=== PATIENT | male | born 1955 | race Caucasian/White ===

== ENCOUNTER → 2022-03-23 10:27 | Outpatient (CLI) | payer MEDICARE, SELFPAY ==
--- NOTE | ~2022-03-23 | MR_ITS ---
EXAMINATION: MR lumbar spine wo con DATE: 03/23/2022 12:14 INDICATION: Lumbar radiculopathy radiating down the right leg. TECHNIQUE: Magnetic resonance imaging (MRI) of the lumbar spine was performed without intravenous con trast. Sequences included sagittal T2-weighted FSE, sagittal T2-weighted FS FSE, sagittal T1-weighted FSE, and axial T2-weighted FSE. COMPARISON: None FINDINGS: Bilateral hypoplastic riblets at what for purposes of this report will be designated L1 with 4 more c audal nonrib-bearing lumbar segments L2-L5. 5 mm retrolisthesis L1 on L2, 2-3 mm retrolisthesis L2 on L3, 3 mm retrolisthesis L3 on L4, 2 mm retrolisthesis L4 on L5 and 3 mm retrolisthesis L5 on S1. Mil d anterior wedging at T12 and L1. Lumbar vertebral body heights are otherwise normal. There are a few scattered small Schmorl's nodes along the endplates of several vertebral bodies in the lumbar and lo wer thoracic spine. Severe right-sided predominant disc height loss at L1-L2 and L4-L5, severe left-s ided predominant disc height loss at L3-L4 and L5-S1, all with associated fibrofatty or fibrovascular degenerative endplate changes. Marrow signal is otherwise normal. Mild disc height loss at T11-T12 a nd T12-L1 and L2-L3. The conus medullaris terminates at L1-L2. There is normal signal in the caudal s rudy cord. Left kidney is not visualized and is either atrophic, absent or abnormally located. Parav ertebral soft tissues are otherwise unremarkable. The following disc levels are specifically discusse d: T11-T12: Disc is minimally bulging. There is mild bilateral facet osteoarthritis. There is mild left neural foraminal stenosis. There is no central canal stenosis. T12-L1: Disc is minimally bulging. There is mild left and moderate right facet joint osteoarthritis. There is no neural foraminal stenosis. There is no central canal stenosis. L1-L2: Disc is bulging with annular fissure. There is moderate right and mild to moderate left facet joint osteoarthritis. There is moderate bilateral, left greater than right neural foraminal stenosis. There is mild to moderate central canal stenosis. L2-L3: Disc is bulging with annular fissure. There is hypertrophy of the ligamentum flavum. There is moderate left and severe right facet joint osteoarthritis. There is moderate bilateral neural foramin al stenosis. There is moderate to severe central canal stenosis with minimal CSF signal amongst the c entrally clustered nerve roots. L3-L4: Disc is bulging with annular fissure. There is moderate bilateral facet joint osteoarthritis. There is moderate bilateral neural foraminal stenosis. There is moderate to severe central canal sten osis with minimal CSF signal amongst the centrally clustered nerve roots. L4-L5: Disc is bulging. There is left and severe right facet joint osteoarthritis. There is moderate left and moderate right neural foraminal stenosis. There is mild central canal stenosis. L5-S1: Disc is bulging with annular fissure. There is moderate to severe bilateral facet joint osteoa rthritis. There is mild right and moderate to severe left neural foraminal stenosis. There is minimal central canal stenosis. IMPRESSION: 1. Severe lumbar spondylosis. 2. Left kidney not visualized at the left renal fossa which could be due to either severe atrophy, de velopmental or surgical absence or abnormal positioning. Reviewed, dictated and finalized at location A. TRONIC TESTER IMPRESSION: 1. Severe lumbar spondylosis. 2. Left kidney not visualized at the left renal fossa which could be due to eit her severe atrophy, developmental or surgical absence or abnormal positioning.
--- NOTE | ~2022-03-23 | MR_ITS ---
EXAMINATION: MR hip RT wo con DATE: 03/23/2022 11:54 INDICATION: Right hip pain and lumbar radiculopathy TECHNIQUE: Magnetic resonance imaging (MRI) of the right hip was performed without intravenous contr ast. Sequences included full-field axial PD-weighted FS FSE and T1-weighted FSE, coronal of the pelvi s with PD-weighted FS FSE, T2-weighted FSE and T1-weighted FSE, small field of view of the right hip with axial PD-weighted FS FSE, sagittal PD-weighted FS FSE, coronal PD-weighted FS FSE and coronal T2 weighted FSE. Additional radial T1-weighted FGR oriented orthogonal to the acetabular rim were obt ained for evaluation of the labrum. COMPARISON: None FINDINGS: Bones/labrum/cartilage: There is subarticular edema and decreased T1 signal underlying the apex and anterosuperior aspect of the right femoral head which is flattened with collapse of the articular surface. This could be relat ed to either trauma including insufficiency fracture or sequela of advanced osteonecrosis. There is s econdary severe osteoarthritis at the right hip with full and near full-thickness cartilage loss ledy g significant portions of the right femoral head and acetabulum. There is prominent subarticular cyst ic change at the anterosuperior right acetabulum. There is diffuse degenerative tearing of the right acetabular labrum which has a thickened macerated appearance. Mild osteoarthritis suggest at the left hip which is not diagnostically evaluated on the large [id number] axial and coronal images of the pelvis. There appear to be small para labral cysts along the superolateral and anterosuperior left a cetabular labrum suggesting a tear of the contralateral left acetabular labrum. Moderate to severe sp ondylosis in the mid to lower lumbar spine. Fluid: Physiologic amount of fluid in the left hip joint. There is an asymmetric right hip joint effusion, l ikely small but with prominent associated synovitis. Soft tissues: Normal and symmetric muscle bulk and signal in the pelvis and visualized proximal thighs. The iliopso as, gluteal and proximal hamstring tendons are normal. Mild prostatomegaly. Limited evaluation of vis ceral organs of the pelvis is otherwise unremarkable. Small fat-containing left inguinal hernia. No p athologically enlarged pelvic/inguinal lymphadenopathy. IMPRESSION: 1. Collapse of a portion of the apical and anterosuperior aspect of the right femoral head which coul d represent sequela of fracture/insufficiency fracture or advanced osteonecrosis. 2. Severe secondary right hip osteoarthritis with prominent degenerative tearing of the right acetabu lar labrum. 3. Mild osteoarthritis of the left hip with tear of the anterosuperior to superolateral left acetabul ar labrum. 3. Moderate to severe lumbar spondylosis. 4. Small fat-containing left inguinal hernia. Reviewed, dictated and finalized at location A. ORATE RELATIONS MANAGER IMPRESSION: 1. Collapse of a portion of the apical and anterosuperior aspect of the right f emoral head which could represent sequela of fracture/insufficiency fracture or advanced osteonecrosis. 2. Severe secondary right hip osteoarthritis with prominent degenerative tearin g of the right acetabular labrum. 3. Mild osteoarthritis of the left hip with tear of the anterosuperior to super olateral left acetabular labrum. 3. Moderate to severe lumbar spondylosis. 4. Small fat-containing left inguinal hernia.
== END ==
PROVIDERS: PCP Internal Medicine; Visit Provider Physician Assistant
DX: M47.896 Other spondylosis, lumbar region (principal); K40.90 Unilateral inguinal hernia, without obstruction or gangrene, not specified as recurrent; M16.0 Bilateral primary osteoarthritis of hip
CPT/HCPCS: 72148; 73721

== ENCOUNTER 2023-11-12 07:00 | Outpatient (CLI) | payer MEDICARE, SELFPAY ==
--- NOTE | ~2023-11-12 | MR_ITS ---
EXAMINATION: MR shoulder RT wo con DATE: 11/12/2023 07:49 INDICATION: Bilateral shoulder pain TECHNIQUE: Magnetic resonance imaging (MRI) of the right shoulder was performed without intravenous c ontrast. Sequences included axial PD-weighted FS FSE, coronal oblique PD-weighted FS FSE, coronal obl ique T2-weighted FS FSE, sagittal PD-weighted FS FSE, and sagittal T1-weighted SE. COMPARISON: None. FINDINGS: Coracoacromial arch: The acromion undersurface is curved in morphology (type II). The coracoacromial ligament is normal. P rior distal clavicle resection. Rotator cuff: Mild supraspinatus and infraspinatus tendinopathy. Very small longitudinal thin linear split tear aguilar r the middle facet insertion of the distal infraspinatus tendon. The teres minor tendon is normal. Mi ld to moderate subscapularis tendinopathy with small multiple partial-thickness tear at the superolat eral margin of the lesser tuberosity footplate. Normal rotator cuff muscle bulk and signal. Biceps tendon, glenoid labrum and glenohumeral cartilage: Long head of the biceps tendon is normal. Severe glenohumeral osteoarthritis with full/near full-thic kness cartilage loss with underlying subarticular edema-like and cystlike changes at the posterior adhikari lf of the glenoid and along a large portion of the posterior and superomedial aspect of the humeral h ead. There is remodeling with mild loss of bone stock along the posterior half of the glenoid. There is detachment and secondary degeneration of the posterior half of the glenoid labrum. Additional dege neration without evident attachment of the anteroinferior glenoid. Fluid: Small glenohumeral joint effusion which extends into the long head biceps tendon sheath. There is syn ovitis along the axillary recess of the joint space. 2.1 x 1.2 x 0.7 cm loose osteochondral body in t he superior recess along the cephalad margin of the superior to posterosuperior labrum. Multilobulate d para labral cyst arising from the posterior inferior glenoid and extending 3 cm posterior inferiorl y and measuring 9 mm orthogonal diameter. No abnormal fluid signal in the subacromial/subdeltoid burs a consistent with mild bursitis. Bones: Bone alignment is normal. No fracture or pathologic marrow replacing process. Mild cystic change ledy g the superior facet of the greater tuberosity likely related to chronic rotator cuff disease. IMPRESSION: 1. Advanced right glenohumeral osteoarthritis with remodeling of the posterior glenoid and extensive labral tear/degeneration. 2. Mild supraspinatus, infraspinatus and subscapularis tendinopathy with very small split tear at the distal infraspinatus tendon and small partial-thickness tear at the superolateral left tuberosity in sertion of the subscapularis tendon. 3. Prior distal right clavicle resection. Reviewed, dictated and finalized at location A. IMPRESSION: 1. Advanced right glenohumeral osteoarthritis with remodeling of the posterior glenoid and extensive labral tear/degeneration. 2. Mild supraspinatus, infraspinatus and subscapularis tendinopathy with very s mall split tear at the distal infraspinatus tendon and small partial-thickness tear at the superolateral left tuberosity insertion of the subscapularis tendon . 3. Prior distal right clavicle resection.
--- NOTE | ~2023-11-12 | XR_ITS ---
XR shoulder LT min 2V Ordering provider: Dalia Jo, TERRI History: . Bilat shoulder pain for 5 years no injury . Comparison: None. FINDINGS: BONES: Fracture of the distal clavicle is noted may be acute or chronic. Bony fragment seen inferior to the acromion process which may be fracture of the glenoid cavity and may be acute or chronic. Prom inent osteophytes seen in the humeral head inferiorly JOINT SPACES: The acromioclavicular joint is normal. The glenohumeral joint is narrowed. SOFT TISSUES: Normal. IMPRESSION: Multiple fractures in the distal clavicle and in the glenoid cavity most likely chronic. Moderate osteoarthritic changes. Reviewed, dictated and finalized at location A.
--- NOTE | ~2023-11-12 | MR_ITS ---
EXAMINATION: MR shoulder LT wo con DATE: 11/12/2023 08:02 INDICATION: Bilateral shoulder pain TECHNIQUE: 1. Magnetic resonance imaging (MRI) of the left shoulder was performed without intravenous contrast. Sequences included axial PD-weighted FS FSE, coronal oblique PD-weighted FS FSE, coronal oblique T2-w eighted FS FSE, sagittal PD-weighted FS FSE, and sagittal T1-weighted SE. COMPARISON: Left shoulder radiographs dated 11/12/2023 FINDINGS: Coracoacromial arch: The acromion undersurface is curved in morphology (type II). The coracoacromial ligament is normal. M ild acromioclavicular osteoarthritis. 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 Rotator cuff: Mild supraspinatus tendinopathy without tear. The infraspinatus and teres minor tendons are normal. T he subscapularis tendon is normal. Normal rotator cuff muscle bulk and signal. Biceps tendon, glenoid labrum and glenohumeral cartilage: Long head of the biceps tendon is normal. There is severe glenohumeral osteoarthritis with full/near full-thickness cartilage with remodeling of the articular cortices along the posterior half and infer ior third of the glenoid with partial-thickness cartilage loss with chondral surface irregularity at the superomedial aspect of the glenoid. Subarticular cystlike change along the inferior glenoid. Ther e is additional full/near full-thickness chondral ulceration along enlarged portion of the humeral he ad posteriorly and superomedially. Mild cortical irregularity and subarticular edema-like signal shay ge at the anterosuperior medial aspect of the humeral head. There are large marginal osteophytes abou t the humeral head. There is a tear at the base of the anteroinferior to posterior inferior glenoid l abrum. Likely complex macerated tear of the posterosuperior glenoid which appears thickened/globular with amorphous mild increased signal. Fluid: Small glenohumeral joint effusion which extends into the long head biceps tendon sheath where it surr ounds an 11 x 8 x 8 mm loose osteochondral body. Mild synovitis at the axillary recess. No intra-duke cular loose osteochondral bodies. No abnormal fluid signal in the subacromial/subdeltoid bursa consis tent with mild bursitis. Bones: Bone alignment is normal. No fracture or pathologic marrow replacing process. Mild cystic change at t he greater tuberosity at the junction of the superior and middle facets likely related to chronic rot ator cuff disease. IMPRESSION: 1. 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 2. Severe left glenohumeral osteoarthritis with extensive labral tearing/degeneration. 3. Mild supraspinatus tendinopathy without tear. Reviewed, dictated and finalized at location A. IMPRESSION: 1. 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 2. Severe left glenohumeral osteoarthritis with extensive labral tearing/degene ration. 3. Mild supraspinatus tendinopathy without tear.
--- NOTE | ~2023-11-12 | XR_ITS ---
XR shoulder RT min 2V Ordering provider: Dalia Jo, TERRI History: . Bilat shoulder pain for 5 years no injury . Comparison: None. FINDINGS: BONES: No acute fracture or dislocation. Osteophyte is seen in the humerus inferiorly. Old healed fra cture in the distal clavicle is noted. Bony fragment seen under the acromion process which may be due to old fracture. Soft tissue ossification is not excluded. JOINT SPACES: The acromioclavicular joint is normal. The glenohumeral joint is normal. SOFT TISSUES: Normal. IMPRESSION: No acute osseous abnormality right shoulder. Reviewed, dictated and finalized at location A.
== END 2023-11-12 07:01 ==
PROVIDERS: PCP Internal Medicine; Visit Provider Physician Assistant
DX: M19.011 Primary osteoarthritis, right shoulder (principal); M19.012 Primary osteoarthritis, left shoulder
CPT/HCPCS: 73030; 73221